=== PATIENT | male | born 1955 | race Caucasian/White ===

== ENCOUNTER 2017-07-07 10:56 | Outpatient (CLI) | payer OTHER | END 2017-07-08 07:24 | disposition home or self-care (01) | LOC: SONOGRAMA 10:56 | DX: M72.0 Palmar fascial fibromatosis [Dupuytren] (principal) ==

== ENCOUNTER 2024-05-16 11:01 | Outpatient (CLI) | payer OTHER | END 2024-05-16 11:12 | disposition home or self-care (01) | LOC: SONOGRAMA 11:01 | PROVIDERS: ATTEND Family Medicine | DX: N50.811 Right testicular pain (principal) ==